=== PATIENT | male | born 1960 | race Caucasian/White ===

== ENCOUNTER 2024-03-03 08:25 | Outpatient (CLI) | payer MEDICARE, OTHER, SELFPAY ==
--- NOTE | 2024-03-03 08:30 | XR_ITS ---
WS: [id number] XR knee LT 3V* [id number] REASON FOR EXAM: acute pop and pain in left knee a week ago. FINDINGS: No fracture or focal bone lesion. Bipartite patella. No acute fracture. Mild to moderate narrowing of the medial knee joint space with moderate subchondral sclerosis and mil d osteophytosis. Lateral joint space is intact and relatively well preserved with minimal subchondral sclerosis and mi ld osteophytosis. Patellofemoral joint space intact with moderate subchondral sclerosis and osteophytosis of the patell a. XR/XR knee LT 3V* [id number] IMPRESSION: Moderate osteoarthritis of the left knee as above.
== END 2024-03-03 08:26 | disposition home or self-care (01) ==
LOC: RAD 08:28
PROVIDERS: Visit Provider Emergency Medicine
DX: M17.12 Unilateral primary osteoarthritis, left knee (principal); R93.6 Abnormal findings on diagnostic imaging of limbs
CPT/HCPCS: 73562